=== PATIENT | female | born 1975 | race Caucasian/White ===

== ENCOUNTER → 2016-09-27 | Outpatient (CLI) | payer BC ==
[~2016-09-27] MED LIST: ACHD5005 PO; HCTZ12.5T PO; LEVO750T9 PO; NABU500T PO; NAPR-243 PO; ONDA4TAB8 PO; PRD20T PO; SULF1TAB35 PO; TRAM-42 PO
--- OUTSIDE RECORDS SUMMARY | 2016-09-27 14:30 | XMS REPORT | Continuity of Care Document ---
Author Author [facility] Organization [facility] Address Unknown Phone Unavailable Care Team Providers Care Qualification Engineer Name Role Phone Joe Flaherty PCP [phone] Source Comments Some departments are not documenting in the electronic medical record. If you do not see the information that you expected, contact Release of Information in the Health Information Management department at [phone] for further assistance in locating additional records.[facility] Active Allergies and Adverse Reactions No Known Allergies Current Medications Prescription Sig. Disp. Refills Start End Date Status Date nabumetone (RELAFEN) 500 Take 500 mg by mouth Active mg tablet twice daily. vitamins, B complex tab Take 1 Tab by mouth Active daily. omeprazole DR(+) Take 2 Caps by mouth 90 Cap 3 03/06/20 Active (PRILOSEC) 20 mg capsule daily before breakfast. [address] (CYMBALTA) Take 1 Cap by mouth 30 Cap 0 03/06/20 Active 20 mg capsule daily. 16 Active Problems Problem Noted Date Palpitations 03/06/2016 Arthralgia of multiple sites 03/06/2016 Venous stasis of both lower extremities 03/06/2016 Health care maintenance 03/06/2016 Social History Tobacco Use Types Packs/Day Years Used Date Former Smoker Quit: 03/06/2010 Smokeless Tobacco: Never Used Alcohol Use Drinks/Week oz/Week Comments No 0 Standard 0.0 drinks or equivalent Last Filed Vital Signs Vital Sign Reading Time Taken Blood Pressure 125/86 03/06/2016 9:43 AM CDT Pulse 74 03/06/2016 9:43 AM CDT Temperature 36.6 C (97.9 F) 03/06/2016 9:43 AM CDT Respiratory Rate 16 03/06/2016 9:43 AM CDT Height 1.702 m (5' 7") 03/06/2016 9:43 AM CDT Weight 96.888 kg (213 lb 9.6 oz) 03/06/2016 9:43 AM CDT Body Mass Index 33.45 03/06/2016 9:43 AM CDT Oxygen Saturation - - Plan of Care Health Maintenance Due Date Last Done Comments Physical (Comprehensive) 1982 Exam Pertussis Vaccine 1986 Tetanus Vaccine 1992 Cervical Cancer Screening 1996 Influenza Vaccine 04/19/2016 Results from Last 3 Months Not on file
--- NOTE | 2016-09-28 18:38 | Diagnostic Imaging Report ---
Bilateral screening mammogram. The current study was also evaluated with a Computer Aided Detection (CAD) system. INDICATION: Screening. No current complaints stated on the questionnaire. COMPARISON: 07/28/15. FINDINGS: The breasts are composed of scattered fibroglandular densities. There is no mass, architectural distortion or suspicious cluster of calcification. Allowing for technique and positional differences, no suspicious change is seen. IMPRESSION: No significant change. ACR BI-RADS Category 2: Benign findings. Result letter will be mailed to the patient. Note: At least 10% of breast cancer is not imaged by mammography. Dictated by: Dictated on workstation # [id number]
== END ==
LOC: RAD 14:27
PROVIDERS: ATTEND Internal Medicine
DX: Z12.31 Encounter for screening mammogram for malignant neoplasm of breast (principal)
CPT/HCPCS: 77067

== ENCOUNTER → 2016-12-28 | Outpatient (CLI) | payer BC | LOC: PREOP 05:36 | PROVIDERS: ATTEND Surgery | DX: Z01.818 Encounter for other preprocedural examination (principal); R19.5 Other fecal abnormalities ==

== ENCOUNTER 2017-01-15 11:00 | Outpatient (CLI) | payer BC ==
[~2017-01-15] VITALS: Ht 167.6 cm; Wt 90.7 kg
== END 2017-01-15 11:50 ==
LOC: PREOP 11:00
PROVIDERS: ATTEND Surgery
DX: Z01.818 Encounter for other preprocedural examination (principal); R19.4 Change in bowel habit

== ENCOUNTER 2017-01-16 10:53 | Day surgery (SDC) | payer BC ==
[~2017-01-16] VITALS: Ht 167.6 cm; Wt 90.7 kg
[2017-01-16] MEDS ORDERED: LACTATED RINGERS 1,000 ML IV STA (11:00)
[2017-01-16] MEDS ORDERED: NALOXONE 0.4 MG/ML 1 ML (NARCAN) VIAL IVP PRN (11:00)
[2017-01-16] MEDS ORDERED: FLUMAZENIL (ROMAZICON) 0.1 MG/ML 5 ML VIAL INJ PRN (11:00)
[2017-01-16 12:03] VITALS: BP 121/83
[2017-01-16] MEDS ORDERED: PROPOFOL INJECTION 50 ML IV ONE (12:32)
[2017-01-16] MEDS ORDERED: LACTATED RINGERS 1,000 ML IV SCH (12:45)
--- NOTE | 2017-01-16 13:14 | Progress Note-Post Operative ---
Post-Operative Progess Note Surgeon (s)/Toll Test Worker (s) Surgeon TIERRA BARBOZA DO Toll Test Worker: none Pre-Operative Diagnosis Change in bowel habits, Family Hx of colon CA, abd pain Post-Operative Diagnosis same + internal hemorrhoids Procedure & Operative Findings Date of Procedure 01/16/17 Procedure Performed/Findings Colonoscopy Anesthesia Type IV Sedation Estimated Blood Loss Estimated blood loss (mL): none Specimens/Packing Specimens Removed none TIERRA BARBOZA DO January 16, 2017 13:14
--- NOTE | 2017-01-16 13:16 | Endoscopy Discharge Instruct ---
Endo Procedure/Findings Findings 1.: Internal Hemorrhoids Discharge Instructions - Activity: You might feel a little sleepy until tomorrow. This is due to the medicine you received to relax you. Until tomorrow, you should: NOT drive a car, operate machinery or power tools. NOT drink any alcoholic beverages. NOT make any important decisions or sign importortant papers. Do not return to work until tomorrow, unless otherwise instructed. Resume previous activities tomorrow. Diet: Start by taking liquids. If you tolerate liquids, advance to solid food. Make appt for one week, Notify Physician - If you experience excessive bleeding, unusual abdominal pain, fever, or chest pain, contact your doctor immediately. [phone] Follow-Up: - I have received and understand the above instructions and will call my doctor if I have any further questions. Patient Signature Date Nurse Signature Other (Relationship) TIERRA BARBOZA DO January 16, 2017 13:16
[2017-01-16 13:25] VITALS: BP_SYST 117; BP_SYST 121; BP_DIAS 83; BP_DIAS 86
[2017-01-16 13:50] VITALS: BP 122/92
[2017-01-16 13:55] VITALS: BP 122/92
--- NOTE | 2017-01-16 23:16 | OPERATIVE REPORT ---
DATE OF SERVICE: 01/16/2017 PREOPERATIVE DIAGNOSES: 1. Change in bowel habits. 2. Abdominal pain. 3. Family history of colon cancer. POSTOPERATIVE DIAGNOSES: 1. Change in bowel habits. 2. Abdominal pain. 3. Family history of colon cancer. 4. Internal hemorrhage. PROCEDURE: Colonoscopy. SURGEON: Alberto Woodson DO. DIRECT CARE PROFESSIONAL: None. ANESTHESIA: IV sedation by the CABLE TELEVISION INSTALLER. SPECIMEN: None. BLOOD LOSS: None. FLUIDS: Per anesthesia. POSTOPERATIVE CONDITION: Stable. INDICATION FOR PROCEDURE: The patient is a 41-year-old female who has been having some change in bowel habits, a little bit of abdominal pain, and she has a pretty strong family history of colon cancer. She needed colonoscopy for screening. FINDINGS: The patient had just some internal hemorrhage. No other obvious pathology. PROCEDURE NOTE: After informed consent was obtained the patient was brought to the endoscopy suite, placed in left lateral decubitus position. She is administered IV sedation. Her vitals were monitored the entire time by the CABLE TELEVISION INSTALLER. The scope was inserted and was pushed all the way to about 150 cm. I was able to evaluate the cecum. Took a picture of the appendiceal orifice. Then able to get into sternal alignment and took a picture and then slowly withdrew the scope. Insufflated to look circumferentially at the curtis, looking at the cecum, then at the ascending colon to the hepatic flexure, then down the transverse colon to the splenic flexure, into the descending colon and down into the sigmoid, into the rectum, retroflexed in the rectal vault. I saw some internal hemorrhoids but no other obvious pathology. The scope was removed. The patient tolerated the procedure well. She was transferred to recovery room in stable condition. Job ID: [id number] DocumentID: [id number] Dictated Date: 01/16/2017 13:18:27 Gynaecological Oncologist Date: 01/16/2017 22:30:51 Dictated By: ALBERTO WOODSON DO
== END 2017-01-16 13:55 | disposition home or self-care (01) ==
LOC: ENDO 10:53
PROVIDERS: ATTEND Surgery
DX: K64.8 Other hemorrhoids (principal); R19.5 Other fecal abnormalities; Z80.0 Family history of malignant neoplasm of digestive organs; F17.210 Nicotine dependence, cigarettes, uncomplicated
CPT/HCPCS: 84703

== ENCOUNTER 2017-12-06 16:55 | Emergency (ER) | payer BC ==
[~2017-12-06] VITALS: Ht 170.2 cm; Wt 79.4 kg
--- NOTE | 2017-12-06 17:26 | ED Lower Extremity ---
General Chief Complaint: Lower Extremity Stated Complaint: L LEG PAIN Source: patient Exam Limitations: no limitations History of Present Illness Date Seen by Provider: Dec 06, 2017 Time Seen by Provider: 17:22 Initial Comments The patient is a 42-year-old white female who presents with a complaint of a painful left lower leg and calf. She reports that about a month ago she was kicked by a horse in that area. She had a large ecchymosis and a central harder nodule which ultimately resolved. She was ambulatory throughout the whole. Yesterday she noted a tender firm area at exactly the area of the hard nodule and the leg has become red and warm below the knee. She takes no estrogens and no blood thinners. There was never an open wound. Pain/Injury Location: left leg Method of Injury: unknown Allergies and Home Medications Allergies Coded Allergies: NKANo Known Allergies (Verified Allergy, Unknown, 11/21/11) Home Medications No Active Prescriptions or Reported Meds Patient Home Medication List Home Medication List Reviewed: Yes Constitutional: see HPI EENTM: no symptoms reported Respiratory: no symptoms reported Cardiovascular: no symptoms reported Gastrointestinal: no symptoms reported Genitourinary: no symptoms reported Musculoskeletal: no symptoms reported Skin: see HPI Psychiatric/Neurological: No Symptoms Reported Past Ptyudvr-Jyoqyv-Yqblzg Hx Patient Social History Former Smoker, Quit: January 16, 2012 Recent Foreign Travel: No Contact w/Someone Who Travel: No Recent Hopitalizations: No Immunizations Up To Date Tetanus Booster (TDap): Less than 5yrs Date of Pneumonia Vaccine: Dec 14, 2013 Date of Influenza Vaccine: May 16, 2015 Seasonal Allergies Seasonal Allergies: Yes Past Medical History Tonsillectomy Reproductive Disorders: No Female Reproductive Disorders: Denies Sexually Transmitted Disease: No Kidney Infection, Bladder Infection, UTI-Chronic Chronic Back Pain Family Medical History Heart Disease Physical Exam Vital Signs Capillary Refill : General Appearance: WD/WN, no apparent distress HEENT: normal ENT inspection Neck: non-tender, full range of motion, supple, normal inspection Cardiovascular: normal peripheral pulses, regular rate, rhythm, no edema, no gallop, no JVD, no murmur Respiratory: chest non-tender, lungs clear, normal breath sounds, no respiratory distress, no accessory muscle use Comments There is medial erythema to the knee on the left calf. There is slight warmness to the touch as well as a pinkish red color. There is a mid calf and central area that is redder and firmer. She states this is the area of impact from the horse. This had previously resolved. 2 small superficial varices are noted in the area without palpable clots. Progress/Results/Core Measures My Orders Orders - RUMA COLE MD Venous Lower Ext Lt (12/06/17 17:31) Departure Communication (Admissions) 1820 the ultrasound returned negative for clot. Impression Primary Impression: cellulitis Disposition: HOME, SELF-CARE Condition: Stable/Unchanged Departure-Patient Inst. Decision time for Depature: 18:29 Referrals: YANIQUE LAUREANO DO (PCP/Family) Primary Care Physician Add. Discharge Instructions: All discharge instructions reviewed with patient and/or family. Voiced understanding. Take a regular aspirin twice daily for a week. Beginning about 6 p.m. tomorrow start the antibiotic by mouth and finish it. If change in condition return to emergency room Scripts Cefdinir (Cefdinir) 300 Mg Capsule 300 MG PO TWICE A DAY, #14 CAP Prov: RUMA COLE MD 12/06/17 RUMA COLE MD Dec 06, 2017 17:26
[2017-12-06] MEDS ORDERED: CEFD300C3 PO (18:33)
--- NOTE | 2017-12-06 18:37 | Diagnostic Imaging Report ---
INDICATION: Left leg pain and redness. COMPARISON: None. TECHNIQUE: Duplex, solano-scale and color-flow imaging of the left lower extremity venous system was performed. FINDINGS: The common femoral vein, superficial femoral vein, profunda femoris, and popliteal veins are normal. These vessels show normal compressibility, color flow, and Doppler augmentation. The deep calf veins, although not very well seen, demonstrate no distinct intraluminal thrombus. IMPRESSION: Negative venous Doppler of the left lower extremity. Dictated by: Dictated on workstation # [id number]
[2017-12-06] MEDS ORDERED: LIDOCAINE 1% INJ 50 ML (XYLOCAINE) VIAL IJ ONE (18:45)
[2017-12-06] MEDS ORDERED: cefTRIAXone 1 GM (ROCEPHIN) VIAL IM ONE (18:45)
[2017-12-06 18:54] VITALS: BP 136/99
== END 2017-12-06 18:54 | disposition home or self-care (01) ==
LOC: EDUNIT# 16:55 → ER 16:56
DX: L03.116 Cellulitis of left lower limb (principal); Z88.1 Allergy status to other antibiotic agents; Z87.891 Personal history of nicotine dependence; Z90.89 Acquired absence of other organs; Z87.440 Personal history of urinary (tract) infections; Z82.49 Family history of ischemic heart disease and other diseases of the circulatory system
CPT/HCPCS: 96372

== ENCOUNTER 2018-06-29 13:30 | Emergency (ER) | payer BC ==
[~2018-06-29] VITALS: Ht 170.2 cm; Wt 81.6 kg
[~2018-06-29 13:30] MED LIST changes: +CEFD300C3 PO
--- OUTSIDE RECORDS SUMMARY | 2018-06-29 13:49 | XMS REPORT | Clinical Summary ---
Author Author [facility] Organization [facility] Address Unknown Phone Unavailable Care Team Providers Care Personal Insurance Advisor Name Role Phone PCP Unavailable Source Comments Some departments are not documenting in the electronic medical record. If you do not see the information that you expected, contact Release of Information in the Health Information Management department at [phone] for further assistance in locating additional records.[facility] Allergies No Known Allergies Current Medications Prescription Sig. [...] No 0 Standard 0.0 drinks or equivalent Sex Assigned at Date Recorded Not on file Last Filed Vital Signs Vital Sign Reading Time Taken Blood Pressure 125/86 03/06/2016 9:43 AM CDT Pulse 74 03/06/2016 9:43 AM CDT Temperature 36.6 C (97.9 F) 03/06/2016 9:43 AM CDT Respiratory Rate 16 03/06/2016 9:43 AM CDT Oxygen Saturation - - Inhaled Oxygen - - Concentration Weight 96.9 kg (213 lb 9.6 oz) 03/06/2016 9:43 AM CDT Height 170.2 cm (5' 7") 03/06/2016 9:43 AM CDT Body Mass Index 33.45 03/06/2016 9:43 AM CDT Plan of Treatment Health Maintenance Due Date Last Done Comments PHYSICAL (COMPREHENSIVE) 1982 EXAM PERTUSSIS VACCINE 1986 HIV SCREENING 1990 TETANUS VACCINE 1992 CERVICAL CANCER SCREENING 2005 BREAST CANCER SCREENING 2015 INFLUENZA VACCINE 03/19/2018 Results Not on filefrom Last 3 Months
--- OUTSIDE RECORDS SUMMARY | 2018-06-29 13:49 | XMS REPORT ---
Author Author EVAN GÓMEZ [facility] Address [address] [place] [address] Care Team Providers Care Manufacturing Engineering Technician Name Role Phone GÓMEZEVAN Unavailable PROBLEMS Type Condition ICD9-CM Code PYP05-QC Code Onset Dates Condition Status SNOMED Code Problem Hypopotassemia 276.8 Active 53849405 Problem Painful respiration 786.52 Active 80248694 Problem Family history of other cardiovascular diseases V17.49 Active 996401287 Problem Need for prophylactic vaccination and inoculation, Influenza V04.81 Active 944460226 Problem Screening examination for pulmonary tuberculosis V74.1 Active 807740916 ALLERGIES No Information ENCOUNTERS Encounter Location Date Diagnosis [facility] [id number] [place] [address]- [address] May, Encounter for immunization Z23 [facility] [id number] [place] [address]- [address] May, Encounter for immunization Z23 [facility] [id number] [place] [address]- [address] Nov, [facility] [id number] [place] [address] Nov, [facility] [id number] [place] [address]- [address] Aug, [facility] [id number] [place] [phone]- [address] Aug, [facility] [id number] [place] [address]- [address] Aug, [facility] [id number] [place] [address]- [address] May, [facility] [id number] [place] [address]- [address] May, [facility] [id number] [address] May, [facility] [address] [facility] [id number] [address] May, [facility] [id number] [address] Apr, [facility] [address] [facility] [id number] [address] Apr, [facility] [address] [facility] [id number] [address] Mar, [facility] [address] [address] December, [facility] [address] [address] Nov, [facility] [address] [address] Nov, [facility] [address] [address] Nov, [facility] [address] [address] May, [facility] [id number] [address] May, IMMUNIZATIONS Vaccine Route Administration Date Status FLULAVAL QUAD 0.5ML (6 MO & UP) 2018 IM Intramuscular Jun 10, 2018 Administered SOCIAL HISTORY Never Assessed REASON FOR VISIT Flu shot PLAN OF CARE VITAL SIGNS MEDICATIONS Unknown Medications RESULTS No Results PROCEDURES Procedure Date Ordered Result Body Site FLULAVAL QUAD 0.5ML (6 MO AND UP) 2018 Jun 10, 2018 SINGLE IMMUNIZATION ADMIN Jun 10, 2018 INSTRUCTIONS MEDICATIONS ADMINISTERED No Known Medications
--- OUTSIDE RECORDS SUMMARY | 2018-06-29 13:50 | XMS REPORT | Continuity of Care Document ---
Author Author [facility] Address Unknown Phone Unavailable Allergies Active Description Code Type Severity Reaction Onset Reported/Identified Relationship to Patient Clinical Status Yes NKANo Known Allergies NKA Miscellaneous Allergy Unknown N/A 12/19/2005 Medications There is no data. Problems Date Dx Coded Attending Type Code Diagnosis Diagnosed By 09/20/2008 599.0 URINARY TRACT INFECTION 09/20/2008 BALDOMERO STERLING APRN 599.0 URINARY TRACT INFECTION 09/20/2008 EVAN GÓMEZ DO 599.0 URINARY TRACT INFECTION 09/20/2008 EVAN GÓMEZ DO 599.0 URINARY TRACT INFECTION 09/20/2008 BALDOMERO STERLING APRN 599.0 URINARY TRACT INFECTION 09/20/2008 BALDOMERO STERLING APRN A 599.0 URINARY TRACT INFECTION 09/13/2011 Ot 599.0 URIN TRACT INFECTION NOS 09/13/2011 Ot 724.2 LUMBAGO 09/13/2011 Ot 729.5 PAIN IN LIMB 11/17/2011 Ot 728.71 PLANTAR FIBROMATOSIS 11/17/2011 Ot 729.5 PAIN IN LIMB 06/05/2012 V04.81 FLU DX (3 YRS AND ABOVE, IM) 06/05/2012 BALDOMERO STERLING APRN V04.81 FLU DX (3 YRS AND ABOVE, IM) 06/05/2012 EVAN GÓMEZ DO V04.81 FLU DX (3 YRS AND ABOVE, IM) 06/05/2012 EVAN GÓMEZ DO V04.81 FLU DX (3 YRS AND ABOVE, IM) 06/05/2012 BALDOMERO STERLING APRN V04.81 FLU DX (3 YRS AND ABOVE, IM) 06/05/2012 BALDOMERO STERLING APRN A V04.81 FLU DX (3 YRS AND ABOVE, IM) 10/29/2012 Ot 719.41 JOINT PAIN- SHLDER 10/29/2012 Ot 786.52 PAINFUL RESPIRATION 11/19/2012 786.52 CHEST WALL PAIN 11/19/2012 ZOËE LIBERTAD, BALDOMERO A 786.52 CHEST WALL PAIN 11/19/2012 GÓMEZ DO, EVAN K 786.52 CHEST WALL PAIN 11/19/2012 GÓMEZ DO, EVAN K 786.52 CHEST WALL PAIN 11/19/2012 HALLIE MAURER, BALDOMERO A 786.52 CHEST WALL PAIN 11/19/2012 HALLIE BYRDN, BALDOMERO A 786.52 CHEST WALL PAIN 11/24/2012 ZOËE SURVEYOR ROD HELPER, BALDOMERO A 276.8 HYPOKALEMIA 11/24/2012 RAJTRINYE SURVEYOR ROD HELPER, BALDOMERO A V17.49 FAM HX CAD (DISEASE) 11/24/2012 GÓMEZ DO, EVAN K 276.8 HYPOKALEMIA 11/24/2012 GÓMEZ DO, EVAN K V17.49 FAM HX CAD (DISEASE) 11/24/2012 ÓGMEZ DO, EVAN K 276.8 HYPOKALEMIA 11/24/2012 GÓMEZ DO, EVAN K V17.49 FAM HX CAD (DISEASE) 11/24/2012 HALLIE BYRDN, BALDOMERO A 276.8 HYPOKALEMIA 11/24/2012 RAJTRINYE SURVEYOR ROD HELPER, BALDOMERO A V17.49 FAM HX CAD (DISEASE) 11/24/2012 HALLIE BYRDN, BALDOMERO A 276.8 HYPOKALEMIA 11/24/2012 HALLIE MAURER, BALDOMERO A V17.49 FAM HX CAD (DISEASE) 03/19/2013 WANDER BEATTY [facility], ALI FACP CCDS Ot 276.9 ELECTROLYT/FLUID DIS NEC 03/19/2013 WANDER BEATTY FAC, ALI FACP CCDS Ot 785.1 PALPITATIONS 03/19/2013 WANDER BEATTY [facility], ALI FACP CCDS Ot 786.50 CHEST PAIN NOS 05/25/2013 GÓMEZ DO, EVAN K V74.1 TB SCREENING 05/25/2013 HALLIE MAURER, BALDOMERO A V74.1 TB SCREENING 05/25/2013 HALLIE MAURER, BALDOMERO A V74.1 TB SCREENING 09/01/2014 Ot 611.79 09/01/2014 WANDER MCBRIDE, ALI FACP CCDS Ot 276.9 09/01/2014 WANDER BEATTY FACC, ALI FACP CCDS Ot 785.1 09/01/2014 WANDER BEATTY FACC, ALI FACP CCDS Ot 786.50 09/01/2014 WANDER BEATTY FACC, ALI FACP CCDS Ot 276.9 09/01/2014 Ot 276.9 09/01/2014 Ot 785.1 09/01/2014 Ot 786.50 09/17/2014 YOCASTA BEATTY, BARBARA Singh Ot 599.70 09/17/2014 BARBARA RUST MD Ot V13.02 02/02/2015 MILES ORTIZ DO Ot 729.2 06/15/2015 Ot G35 06/20/2015 LAUREANO DO, YANIQUE Ot G35 06/28/2015 Ot 611.79 06/28/2015 WANDER BEATTY FACC, ALI FACP CCDS Ot 276.9 06/28/2015 WANDER BEATTY FACC, ALI FACP CCDS Ot 785.1 06/28/2015 WANDER BEATTY FACC, ALI FACP CCDS Ot 786.50 06/28/2015 WANDER BEATTY FACC, ALI FACP CCDS Ot 276.9 06/28/2015 Ot 276.9 06/28/2015 Ot 785.1 06/28/2015 Ot 786.50 06/28/2015 BARBARA RUST MD Ot 599.70 06/28/2015 BARBARA RUST MD Ot V13.02 06/28/2015 MILES ROTIZ DO Ot 729.2 06/28/2015 Ot G35 06/28/2015 LAUREANO DO, YANIQUE Ot G35 06/29/2015 LAUREANO DO, YANIQUE Ot D47.2 06/30/2015 LAUREANO DO, YANIQUE Ot G35 06/30/2015 LAUREANO DO, YANIQUE Ot G35 07/05/2015 LAUREANO DO, YANIQUE Ot G35 08/04/2015 LAUREANO DO, YANIQUE Ot D47.2 08/10/2015 LAUREANO DO, YANIQUE Ot Z12.31 08/23/2015 LAUREANO DO, YANIQUE Ot Z12.31 09/26/2015 LAUREANO DO, YANIQUE Ot D47.2 MONOCLONAL GAMMOPATHY 12/07/2015 CHAGO BEATTY, BENNIE Salamanca Ot D47.2 MONOCLONAL GAMMOPATHY 02/18/2016 AUGUSTIN POPE DO Ot N12 TUBULO-INTERSTITIAL NEPHRITIS, NOT SPCF 02/24/2016 AUGUSTIN POPE DO Ot N12 TUBULO-INTERSTITIAL NEPHRITIS, NOT SPCF 05/09/2016 BRIA BEATTY, WALDEMAR Cisse Ot M25.861 OTHER SPECIFIED JOINT DISORDERS, RIGHT K 05/16/2016 BRIA BEATTY, WALDEMAR Cisse Ot M25.861 OTHER SPECIFIED JOINT DISORDERS, RIGHT K 09/25/2016 Ot 611.79 SYMPTOMS IN BREAST NEC 09/25/2016 WANDER BEATTY FAC, ALI FACP CCDS Ot 276.9 ELECTROLYT/FLUID DIS NEC 09/25/2016 WANDER BEATTY FAC, ALI FACP CCDS Ot 785.1 PALPITATIONS 09/25/2016 WANDER BEATTY FAC, ALI FACP CCDS Ot 786.50 CHEST PAIN NOS 09/25/2016 WANDER BEATTY FAC, ALI FACP CCDS Ot 276.9 ELECTROLYT/FLUID DIS NEC 09/25/2016 Ot 276.9 ELECTROLYT/ FLUID DIS NEC 09/25/2016 Ot 785.1 PALPITATIONS 09/25/2016 Ot 786.50 CHEST PAIN NOS 09/25/2016 YOCASTA BEATTY, BARBARA Singh Ot 599.70 HEMATURIA, UNSPECIFIED 09/25/2016 BARBARA RUST MD Ot V13.02 PERSONAL HISTORY, URINARY (TRACT) INFECT 09/25/2016 MILES ORTIZ DO Ot 729.2 NEURALGIA/NEURITIS NOS 09/25/2016 Ot G35 MULTIPLE SCLEROSIS 09/25/2016 YANIQUE LAUREANO DO Ot G35 MULTIPLE SCLEROSIS 09/25/2016 YANIQUE LAUREANO DO Ot Z12.31 ENCNTR SCREEN MAMMOGRAM FOR MALIGNANT NE 09/25/2016 YANIQUE LAUREANO DO Ot Z12.31 ENCNTR SCREEN MAMMOGRAM FOR MALIGNANT NE 09/25/2016 Ot D47.2 MONOCLONAL GAMMOPATHY 09/25/2016 CHAGO BEATTY, BENNIE Salamanca Ot D47.2 MONOCLONAL GAMMOPATHY 09/25/2016 BRIA BEATTY, WALDEMAR Cisse Ot M25.861 OTHER SPECIFIED JOINT DISORDERS, RIGHT K 09/28/2016 YANIQUE LAUREANO DO Ot Z12.31 ENCNTR SCREEN MAMMOGRAM FOR MALIGNANT NE 10/11/2016 YANIQUE LAUREANO DO Ot Z12.31 ENCNTR SCREEN MAMMOGRAM FOR MALIGNANT NE 12/28/2016 TIERRA BARBOZA DO Ot R19.5 OTHER FECAL ABNORMALITIES 12/28/2016 TAMRA DO TIERRA B Ot Z01.818 ENCOUNTER FOR OTHER PREPROCEDURAL EXAMIN 01/10/2017 TAMRA ASEED ANDERSONIC B Ot R19.4 CHANGE IN BOWEL HABIT 01/10/2017 TAMRA ANDERSON TIERRA B Ot Z01.818 ENCOUNTER FOR OTHER PREPROCEDURAL EXAMIN 01/15/2017 TAMRA ANDERSON TIERRA B Ot R19.4 CHANGE IN BOWEL HABIT 01/15/2017 TAMRA ANDERSONSAEEDIC B Ot Z01.818 ENCOUNTER FOR OTHER PREPROCEDURAL EXAMIN 01/16/2017 TAMRA SAEED ANDERSONIC B Ot F17.210 NICOTINE DEPENDENCE, CIGARETTES, UNCOMPL 01/16/2017 TAMRA TIERRA ANDERSON B Ot K64.8 OTHER HEMORRHOIDS 01/16/2017 TAMRA SAEED ANDERSONIC B Ot R19.5 OTHER FECAL ABNORMALITIES 01/16/2017 TAMRA SAEED ANDERSONIC B Ot Z80.0 FAMILY HISTORY OF MALIGNANT NEOPLASM OF 01/17/2017 ROBERKERWIN TIERRA ANDERSON B Ot F17.210 NICOTINE DEPENDENCE, CIGARETTES, UNCOMPL 01/17/2017 ROBERKERWIN SAEED ANDERSONIC B Ot K64.8 OTHER HEMORRHOIDS 01/17/2017 TAMRA SAEED ANDERSONIC B Ot R19.5 OTHER FECAL ABNORMALITIES 01/17/2017 ROBERKERWIN TIERRA ANDERSON B Ot Z80.0 FAMILY HISTORY OF MALIGNANT NEOPLASM OF 12/06/2017 RUMA COLE MD Ot L03.116 CELLULITIS OF LEFT LOWER LIMB 12/06/2017 RUMA COLE MD Ot M79.662 PAIN IN LEFT LOWER LEG 12/06/2017 RUMA COLE MD Ot Z82.49 FAMILY HX OF ISCHEM HEART DIS AND OTH DI 12/06/2017 RUMA COLE MD Ot Z87.440 PERSONAL HISTORY OF URINARY (TRACT) INFE 12/06/2017 RUMA COLE MD Ot Z87.891 PERSONAL HISTORY OF NICOTINE DEPENDENCE 12/06/2017 RUMA COLE MD Ot Z88.1 ALLERGY STATUS TO OTHER ANTIBIOTIC AGENT 12/06/2017 RUMA COLE MD Ot Z90.89 ACQUIRED ABSENCE OF OTHER ORGANS Procedures Code Description [place] [address] ROUTINE VENIPUNCTURE 11/24/2012 00275 CMP 11/24/2012 03260 LIPID PANEL 11/24/20120433595 GFR CALC (RESULT ONLY) 11/24/2012 33493 TSH 11/24/2012 57611 UA W/ CULTURE IF INDICATED 05/05/2013 61293 CULTURE URINE 05/06/2013 39486 TB TEST INTRADERMAL 05/25/2013 58844 TB TEST INTRADERMAL 09/07/2014 Results Test Result Range Urine beta human chorionic gonadotropin (hCG) measurement - 01/16/17 11:00 Urine beta human chorionic gonadotropin (hCG) measurement NEGATIVE NEGATIVE Encounters ACCT No. Visit Date/Time Discharge Status Pt. Type Provider Facility Loc./Unit Complaint [id number] 09/07/2014 13:53:00 09/07/2014 23:59:59 CLS Outpatient BALDOMERO STERLING APRN [id number] 06/17/2013 14:03:00 06/17/2013 23:59:59 CLS Outpatient BALDOMERO STERLING APRN [id number] 05/25/2013 15:37:00 05/25/2013 23:59:59 CLS Outpatient EVAN GÓMEZ DO [id number] 05/05/2013 17:59:00 05/05/2013 23:59:59 CLS Outpatient EVAN GÓMEZ DO [id number] 11/24/2012 13:50:00 11/24/2012 23:59:59 CLS Outpatient BALDOMERO STERLING APRN [id number] 11/19/2012 13:40:00 11/19/2012 23:59:59 CLS Outpatient [id number] 12/06/2017 16:56:00 12/06/2017 18:54:00 DIS Emergency DOUGLAS BEATTY, RUMA Salamanca [facility] ER L LEG PAIN [id number] 01/30/2017 10:15:00 01/30/2017 23:59:59 CLS Preadmit TIERRA BARBOZA DO [facility] RAD LLQ PAIN [id number] 01/16/2017 10:53:00 01/16/2017 13:55:00 DIS Outpatient TIERRA BARBOZA DO [facility] ENDO CHANGE IN BOWEL MOVEMENTS [id number] 01/15/2017 11:00:00 01/15/2017 11:50:00 DIS Outpatient TIERRA BARBOZA DO [facility] PREOP CHANGE IN BOWEL HABITS [id number] 12/28/2016 05:36:00 12/28/2016 23:59:59 CLS Outpatient TIERRA BARBOZA DO [facility] PREOP CHANGE IN BOWEL MOVEMENTS [id number] 09/27/2016 14:27:00 09/27/2016 23:59:59 CLS Outpatient YANIQUE LAUREANO DO [facility] RAD ENCOUNTER FOR SCREENING MAMMO FOR MALIGNANT NEOPLA [id number] 05/04/2016 17:37:00 05/04/2016 23:59:59 CLS Outpatient WALDEMAR FRASER MD [facility] RAD TEAR OF LATERAL MENISCUS RT KNEE [id number] 02/18/2016 14:49:00 02/18/2016 19:31:00 DIS Emergency AUGUSTIN POPE DO [facility] ER FEVER/R SIDE ABD PAIN [id number] 11/23/2015 14:27:00 11/23/2015 23:59:59 CLS Outpatient BENNIE ANDERS MD [facility] LAB MONOCLONAL GAMMOPATHY [id number] 08/10/2015 08:40:00 08/10/2015 23:59:59 CLS Outpatient YANIQUE LAUREANO DO [facility] RAD ABNORMAL MAMMOGRAM [id number] 07/28/2015 14:35:00 07/28/2015 23:59:59 CLS Outpatient YANIQUE LAUREANO DO [facility] RAD SCREENING [id number] 06/30/2015 07:10:00 06/30/2015 23:59:59 CLS Outpatient YANIQUE LAUREANO DO [facility] LAB Monoclonal gammopathy [id number] 06/15/2015 14:21:00 06/15/2015 23:59:59 CLS Outpatient YANIQUE LAUREANO DO [facility] CATH MULTIPLE SCLEROSIS [id number] 12/20/2014 14:44:00 12/20/2014 23:59:59 CLS Outpatient MILES ORTIZ DO [facility] RAD RADICULOPATHY [id number] 09/01/2014 08:55:00 09/01/2014 23:59:59 CLS Outpatient BARBARA RUST MD [facility] RAD HEMATURIA,RECURRENT UTI [id number] 01/14/2013 06:52:00 03/19/2013 00:01:00 DIS Outpatient WANDER BEATTY FACC, IMANI FACP CCDS [facility] CARD CP, PALPITATIONS [id number] 02/26/2013 08:46:00 02/26/2013 23:59:59 CLS Outpatient WANDER BEATTY FACC, IMANI FACP CCDS [facility] LAB ELECTROLYTES ADNORMALITY [id number] 12/29/2012 08:35:00 12/29/2012 23:59:59 CLS Outpatient WANDER BEATTY FACC, IMANI FACP CCDS [facility] CARD CHEST PAIN, PALPITATIONS [id number] 09/27/2015 00:00:00 Document Registration [id number] 05/30/2015 14:53:00 Document Registration [id number] 09/01/2014 08:54:00 Document Registration [id number] 03/20/2013 09:00:00 Document Registration [id number] 10/29/2012 13:51:00 Document Registration [id number] 12/31/2011 14:05:00 Document Registration [id number] 11/17/2011 16:52:00 Document Registration [id number] 09/13/2011 05:15:00 Document Registration
--- NOTE | 2018-06-29 14:19 | Diagnostic Imaging Report ---
Indication: Fall with left knee pain. Time of exam: 2:08 PM 3 views left knee demonstrate normal alignment. Joint space is well maintained. Articular surfaces are smooth. No fracture, dislocation or effusion is seen. There does appear to be some prepatellar soft tissue swelling. Impression: Prepatellar soft tissue swelling. No acute bony abnormality is detected. Dictated by: Dictated on workstation # [id number]
--- NOTE | 2018-06-29 14:31 | ED Lower Extremity ---
General Chief Complaint: Trauma-Non Activation Stated Complaint: L KNEE PAIN,FALL Nursing Triage Note: PATIENT STATES THAT SHE FELL SUDDENLY WHILE WALKING OUT OF SPIRITISM TODAY. SHE WAS HOLDING HER GRANDDAUGHTER AND TOOK MOST OF THE IMPACT ON HER KNEES TO KEEP THE BABY FROM GETTING INJURED. SIGNIFICANT PAIN IN LEFT KNEE. PATIETN STATES SHE CAN WALK BUT IT IS VERY PAINFUL AND "IT DOESN'T LOOK RIGHT." Nursing Sepsis Screen: No Definite Risk History of Present Illness Date Seen by Provider: Jun 29, 2018 Time Seen by Provider: 14:05 Initial Comments 43-year-old female presents for bilateral knee pain, left worse than right. She was walking out of bahai holding her granddaughter when she fell, she sustained most of the impact on her left knee. She denies any other injuries at the time of the fall. She's had no previous knee problems. Moderate anterior knee swelling on the left. Onset: just prior to arrival Pain/Injury Location: bilateral knee Method of Injury: fell Modifying Factors: Improves With Rest Allergies and Home Medications Allergies Coded Allergies: NKANo Known Allergies (Verified Allergy, Unknown, 11/21/11) Home Medications Cefdinir 300 Mg Capsule, 300 MG PO TWICE A DAY Prescribed by: RUMA COLE on 12/06/17 7354 Patient Home Medication List Home Medication List Reviewed: Yes Review of Systems Constitutional: no symptoms reported, see HPI Musculoskeletal: see HPI, joint pain (bilateral knee pain left greater than right.), joint swelling (left knee) Skin: see HPI, other (abrasion left knee) Past Oixmmgq-Bnkepf-Qrteei Hx Patient Social History Type Used: Cigarettes Former Smoker, Quit: January 16, 2012 Recent Foreign Travel: No Contact w/Someone Who Travel: No Recent Infectious Disease Expo: No Recent Hopitalizations: No Immunizations Up To Date Tetanus Booster (TDap): Less than 5yrs Date of Pneumonia Vaccine: Dec 14, 2013 Date of Influenza Vaccine: May 16, 2015 Seasonal Allergies Seasonal Allergies: Yes Past Medical History Surgeries: Yes (foot sx, knee scope, hemorrage that required sx, ) Tonsillectomy Respiratory: No Cardiac: No Neurological: No Reproductive Disorders: No Female Reproductive Disorders: Denies Sexually Transmitted Disease: No Kidney Infection, Bladder Infection, UTI-Chronic Gastrointestinal: No Musculoskeletal: Yes Chronic Back Pain Endocrine: No Cancer: No Psychosocial: No Integumentary: No Blood Disorders: No Family Medical History Heart Disease Physical Exam Vital Signs Vital Signs - First Documented 06/29/18 13:40 Temp 97.0 Pulse 83 Resp 20 B/P (MAP) 133/92 (106) Pulse Ox 96 O2 Delivery Room Air Capillary Refill : Less Than 3 Seconds Height, Weight, BMI Height: 5'7.00" Weight: 180lbs. 0oz. 81.683485dq; 32.3 BMI Method:Stated General Appearance: WD/WN, no apparent distress Neck: non-tender, full range of motion, supple, normal inspection Cardiovascular: normal peripheral pulses, regular rate, rhythm Respiratory: chest non-tender, lungs clear, normal breath sounds Gastrointestinal: normal bowel sounds, non tender, soft Knees: right knee non-tender, right knee normal inspection; bilateral knee normal range of motion; left knee soft tissue tenderness, left knee swelling ( nephew prepatellar swelling noted), left knee other (no medial or lateral laxity , negative Sandi and anterior/posterior drawer.) Neurologic/Psychiatric: no motor/sensory deficits, alert, normal mood/affect, oriented x 3 Skin: normal color, warm/dry, other (superficial abrasion left anterior knee) Progress/Results/Core Measures Results/Orders My Orders Orders - ANA LAURA FIGUEROA Knee, Left, 3 Views (06/29/18 13:56) Urine Bedside (06/29/18 14:11) Vital Signs/I&O 06/29/18 06/29/18 13:40 15:05 Temp 97.0 97.0 Pulse 83 83 Resp 20 20 B/P (MAP) 133/92 (106) 133/92 (106) Pulse Ox 96 96 O2 Delivery Room Air Blood Pressure Mean: 106 Progress Progress Note : Time: 14:05 Progress Note Patient seen and evaluated. X-rays of the left knee. Superficial abrasion to the left knee with sterile water and Hibiclens. Triple antibiotic ointment and Band-Aid applied. 1445 x-rays findings reviewed with patient, no fractures or dislocations appreciated. 6 inch Aristeo wrap applied to left knee. Diagnostic Imaging Diagonstic Imaging: Xray Plain Films/CT/US/NM/MRI: knee Comments NAME: NIMA LAUREANO [facility] REC#: [id number] PT STATUS: REG ER : 1975 PHYSICIAN: ANA LAURA FIGUEROA ADMIT DATE: 06/29/18/ER Signed Date of Exam: 06/29/18 KNEE, LEFT, 3 VIEWS Indication: Fall with left knee pain. Time of exam: 2:08 PM 3 views left knee demonstrate normal alignment. Joint space is well maintained. Articular surfaces are smooth. No fracture, dislocation or effusion is seen. There does appear to be some prepatellar soft tissue swelling. Impression: Prepatellar soft tissue swelling. No acute bony abnormality is detected. Dictated by: Dictated on workstation # [id number] Dict: 06/29/18 1415 Trans: 06/29/18 142 Interpreted by: DEYSI AGUILAR MD Electronically signed by: DEYSI AGUILAR MD 06/29/18 142 Departure Impression Primary Impression: Fall Qualified Codes: W19.XXXA - Unspecified fall, initial encounter Additional Impression: Contusion of left knee Qualified Codes: S80.02XA - Contusion of left knee, initial encounter Disposition: 01 HOME, SELF-CARE Condition: Improved Departure-Patient Inst. Decision time for Depature: 14:50 Referrals: YANIQUE LAUREANO DO (PCP/Family) Primary Care Physician Patient Instructions: Knee Pain (DC) Add. Discharge Instructions: Ice to knee 20 minutes every 2 hours while awake. You may alternate between Tylenol 650 mg and ibuprofen 600 mg every 4 hours for pain and swelling. Activity as tolerated. Follow-up with your primary care provider in 2-3 days, or sooner if symptoms are not improving or worsen. Return to emergency department for new or worsening injuries. All discharge instructions reviewed with patient and/or family. Voiced understanding. ANA LAURA FIGUEROA Jun 29, 2018 14:30
[2018-06-29 15:05] VITALS: BP 133/92
== END 2018-06-29 15:10 | disposition home or self-care (01) ==
LOC: EDUNIT# 13:30 → ER 13:31
DX: S80.02XA Contusion of left knee, initial encounter (principal); Z87.891 Personal history of nicotine dependence; Z90.89 Acquired absence of other organs; Z87.440 Personal history of urinary (tract) infections; W19.XXXA Unspecified fall, initial encounter; Y92.22 Religious institution as the place of occurrence of the external cause
CPT/HCPCS: 73562; 84703

== ENCOUNTER 2018-11-11 10:24 | Emergency (ER) | payer BC ==
[~2018-11-11] VITALS: Ht 170.2 cm; Wt 83.9 kg
--- OUTSIDE RECORDS SUMMARY | 2018-11-11 10:29 | XMS REPORT | Clinical Summary ---
Author Author [facility] Organization [facility] Address Unknown Phone Unavailable Care Team Providers Care Director Of Conservation Name Role Phone PCP Unavailable Source Comments Some departments are not documenting in the electronic medical record. If you do not see the information that you expected, contact Release of Information in the Health Information Management department at [phone] for further assistance in locating additional records.[facility] Allergies No Known Allergies Medications End Date Status Medication Sig Dispensed Refills Start Date Active nabumetone (RELAFEN) 500 Take 500 mg 0 mg tablet by mouth twice daily. Active vitamins, B complex tab Take 1 Tab by 0 mouth daily. Active omeprazole DR(+) Take 2 Caps 90 Cap 3 (PRILOSEC) 20 mg capsule by mouth 6 daily before breakfast. Active DULoxetine DR (CYMBALTA) Take 1 Cap by 30 Cap 0 20 mg capsule mouth daily. 6 Active Problems Problem Noted Date Palpitations 03/06/2016 Arthralgia of multiple sites 03/06/2016 Venous stasis of both lower extremities 03/06/2016 Health care maintenance 03/06/2016 Social History Date Tobacco Use Types Packs/Day Years Used Quit: 03/06/2010 Former Smoker Smokeless Tobacco: Never Used Alcohol Use Drinks/Week oz/Week Comments No 0 Standard 0.0 drinks or equivalent Sex Assigned at Date Recorded Not on file Industry Job Start Date Occupation Not on file Not on file Not on file Travel End Travel History Travel Start No recent travel history available. Last Filed Vital Signs Time Taken Vital Sign Reading 03/06/2016 9:43 AM CDT Blood Pressure 125/86 03/06/2016 9:43 AM CDT Pulse 74 03/06/2016 9:43 AM CDT Temperature 36.6 C (97.9 F) 03/06/2016 9:43 AM CDT Respiratory Rate 16 - Oxygen Saturation - - Inhaled Oxygen - Concentration 03/06/2016 9:43 AM CDT Weight 96.9 kg (213 lb 9.6 oz) 03/06/2016 9:43 AM CDT Height 170.2 cm (5' 7") 03/06/2016 9:43 AM CDT Body Mass Index 33.45 Plan of Treatment Health Maintenance Due Date Last Done Comments PHYSICAL (COMPREHENSIVE) 1982 EXAM HIV SCREENING 1990 DTAP/TDAP VACCINES (1 - 1993 Tdap) CERVICAL CANCER SCREENING 2005 BREAST CANCER SCREENING 2015 INFLUENZA VACCINE 03/19/2018 Results Not on filefrom Last 3 Months Insurance Type Payer Benefit Subscriber ID Effective Phone Address Plan / Dates Group PPO BCBS [facility] xxxxxxxxxxxx 2015- [facility] CARE Present BLUE Advance Directives Patient has advance care planning documents on file. For more information, please contact: [facility] [address] [place] [address]
[2018-11-11] MEDS ORDERED: ASPIRIN 81 MG CHEW (CHILDREN'S ASA) ONE (10:30)
--- OUTSIDE RECORDS SUMMARY | 2018-11-11 10:30 | XMS REPORT | Continuity of Care Document ---
Author Author [facility] Address Unknown Phone Unavailable Allergies Active [...] A 786.52 CHEST WALL PAIN 11/24/2012 ZOËE DATA ANALYSIS ASSISTANT, BALDOMERO A 276.8 HYPOKALEMIA 11/24/2012 RAJTRINYE DATA ANALYSIS ASSISTANT, BALDOMERO A V17.49 FAM HX CAD (DISEASE) 11/24/2012 GÓMEZ DO, EVAN K 276.8 HYPOKALEMIA 11/24/2012 GÓMEZ DO, EVAN K V17.49 FAM HX CAD (DISEASE) 11/24/2012 GÓMEZ DO, EVAN K 276.8 HYPOKALEMIA 11/24/2012 GÓMEZ DO, EVAN K V17.49 FAM HX CAD (DISEASE) 11/24/2012 HALLIE BYRDN, BALDOMERO A 276.8 HYPOKALEMIA 11/24/2012 RAJTRINYE DATA ANALYSIS ASSISTANT, BALDOMERO A V17.49 FAM HX CAD (DISEASE) 11/24/2012 HALLIE BYRDN, BALDOMERO A 276.8 HYPOKALEMIA 11/24/2012 HALLIE MAURER, BALDOMERO A V17.49 FAM HX CAD (DISEASE) 03/19/2013 WANDER BEATTY [facility], ALI FACP CCDS Ot 276.9 ELECTROLYT/FLUID DIS NEC 03/19/2013 WANDER BEATTY FAC, ALI FACP CCDS Ot 785.1 PALPITATIONS 03/19/2013 WANDER BEATTY [facility], ALI FACP CCDS Ot 786.50 CHEST PAIN [...] BARBARA RUST MD Ot V13.02 06/28/2015 MILES ORTIZ DO Ot 729.2 06/28/2015 Ot G35 06/28/2015 [...] Ot R19.5 OTHER FECAL ABNORMALITIES 12/28/2016 TAMRA ANDERSON TIERRA B Ot Z01.818 ENCOUNTER FOR OTHER PREPROCEDURAL EXAMIN 01/10/2017 TAMRA ANDERSON TIERRA B Ot R19.4 CHANGE IN BOWEL HABIT 01/10/2017 TAMRA ANDERSON TIERRA B Ot Z01.818 ENCOUNTER FOR OTHER PREPROCEDURAL EXAMIN 01/15/2017 TAMRA ANDERSON TIERRA B Ot R19.4 CHANGE IN BOWEL HABIT 01/15/2017 TAMRA ANDERSON TIERRA B Ot Z01.818 ENCOUNTER FOR OTHER PREPROCEDURAL EXAMIN 01/16/2017 TAMRA ANDERSON TIERRA B Ot F17.210 NICOTINE DEPENDENCE, CIGARETTES, UNCOMPL 01/16/2017 TAMRA SAEED ANDERSONIC B Ot K64.8 OTHER HEMORRHOIDS 01/16/2017 TAMRA ANDERSON TIERRA B Ot R19.5 OTHER FECAL ABNORMALITIES 01/16/2017 TAMRA SAEED ANDERSONIC B Ot Z80.0 FAMILY HISTORY OF MALIGNANT NEOPLASM OF 01/17/2017 TAMRA SAEED ANDERSONIC B Ot F17.210 NICOTINE DEPENDENCE, CIGARETTES, UNCOMPL 01/17/2017 TAMRA SAEED ANDERSONIC B Ot K64.8 OTHER HEMORRHOIDS 01/17/2017 TAMRA DO TIERRA B Ot R19.5 OTHER FECAL ABNORMALITIES 01/17/2017 TAMRA DO TIERRA B Ot Z80.0 FAMILY HISTORY OF MALIGNANT [...] Ot Z90.89 ACQUIRED ABSENCE OF OTHER ORGANS 06/29/2018 ANA LAURA FIGUEROA Ot M25.571 PAIN IN RIGHT ANKLE AND JOINTS OF RIGHT 06/29/2018 ANA LAURA FIGUEROA Ot S80.02XA CONTUSION OF LEFT KNEE, INITIAL ENCOUNTE 06/29/2018 ANA LAURA FIGUEROAP Ot W19.XXXA UNSPECIFIED FALL, INITIAL ENCOUNTER 06/29/2018 ANA LAURA FIGUEROA Ot Y92.[address] 06/29/2018 ANA LAURA FIGUEROA Ot Z87.440 PERSONAL HISTORY OF URINARY (TRACT) INFE 06/29/2018 ANA LAURA FIGUEROAP Ot Z87.891 PERSONAL HISTORY OF NICOTINE DEPENDENCE 06/29/2018 ANA LAURA FIGUEROAP Ot Z90.89 ACQUIRED ABSENCE OF OTHER ORGANS 07/01/2018 ANA LAURA FIGUEROAP Ot M25.571 PAIN IN RIGHT ANKLE AND JOINTS OF RIGHT 07/01/2018 ANA LAURA FIGUEROAP Ot S80.02XA CONTUSION OF LEFT KNEE, INITIAL ENCOUNTE 07/01/2018 ANA LAURA FIGUEROAP Ot W19.XXXA UNSPECIFIED FALL, INITIAL ENCOUNTER 07/01/2018 ANA LAURA FIGUEROAP Ot Y92.[address] 07/01/2018 ANA LAURA FIGUEROAP Ot Z87.440 PERSONAL HISTORY OF URINARY (TRACT) INFE 07/01/2018 ANA LAURA FIGUEROAP Ot Z87.891 PERSONAL HISTORY OF NICOTINE DEPENDENCE 07/01/2018 ANA LAURA FIGUEROAP Ot Z90.89 ACQUIRED ABSENCE OF OTHER ORGANS Procedures Code [place] [address] ROUTINE VENIPUNCTURE 11/24/2012 44083 CMP 11/24/2012 40074 LIPID PANEL 11/24/2012 2341212 GFR CALC (RESULT ONLY) 11/24/2012 84688 TSH 11/24/2012 77699 UA W/ CULTURE IF INDICATED 05/05/2013 06957 CULTURE URINE 05/06/2013 20538 TB TEST INTRADERMAL 05/25/2013 83095 TB TEST INTRADERMAL 09/07/2014 Results Test Result Range Urine beta human chorionic gonadotropin (hCG) measurement - 01/16/17 11:00 Urine beta human chorionic gonadotropin (hCG) measurement NEGATIVE NEGATIVE Encounters ACCT No. Visit Date/Time Discharge Status Pt. Type Provider Facility Loc./Unit Complaint [id number] 09/07/2014 13:53:00 09/07/2014 23:59:59 CLS Outpatient BALDOMERO STERLING APRN [id number] 06/17/2013 14:03:00 06/17/2013 23:59:59 CLS Outpatient KALPANA STERLING APRNNADIA Singh [id number] 05/25/2013 15:37:00 05/25/2013 23:59:59 CLS Outpatient EVAN GÓMEZ DO [id number] 05/05/2013 17:59:00 05/05/2013 23:59:59 CLS Outpatient EVAN GÓMEZ DO [id number] 11/24/2012 13:50:00 11/24/2012 23:59:59 CLS Outpatient BALDOMERO STERLING APRN Samantha [id number] 11/19/2012 13:40:00 11/19/2012 23:59:59 CLS Outpatient [id number] 06/29/2018 13:31:00 06/29/2018 15:10:00 DIS Emergency ANA ALURA FIGUEROA [facility] ER L KNEE PAIN,FALL [id number] 12/06/2017 16:56:00 12/06/2017 18:54:00 DIS Emergency RUMA COLE MD [facility] ER L LEG PAIN [id number] 01/30/2017 10:15:00 01/30/2017 23:59:59 CLS Preadmit TIERRA BARBOZA DO [facility] RAD LLQ PAIN [id number] 01/16/2017 10:53:00 01/16/2017 13:55:00 DIS Outpatient TIERRA BARBOZA DO [facility] ENDO CHANGE IN BOWEL MOVEMENTS [id number] 01/15/2017 11:00:00 01/15/2017 11:50:00 DIS Outpatient TIERRA BARBOZA DO [facility] PREOP CHANGE IN BOWEL HABITS [id number] 12/28/2016 05:36:00 12/28/2016 23:59:59 CLS Outpatient TIERRA BARBOZA DO [facility] PREOP CHANGE IN BOWEL MOVEMENTS [id number] 09/27/2016 14:27:00 09/27/2016 23:59:59 CLS Outpatient YANIQUE LAUREANO DO [facility] RAD ENCOUNTER FOR SCREENING MAMMO FOR MALIGNANT NEOPLA [id number] 05/04/2016 17:37:00 05/04/2016 23:59:59 CLS Outpatient WALDEMAR FRASER MD [facility] RAD TEAR OF LATERAL MENISCUS RT KNEE [id number] 02/18/2016 14:49:00 02/18/2016 19:31:00 DIS Emergency AUGUSTIN POPE DO [facility] ER FEVER/R SIDE ABD PAIN [id number] 11/23/2015 14:27:00 11/23/2015 23:59:59 CLS Outpatient BENNIE ANDERS MD [facility] LAB MONOCLONAL GAMMOPATHY [id number] 08/10/2015 08:40:00 08/10/2015 23:59:59 CLS Outpatient YANIQUE LAUREANO DO [facility] RAD ABNORMAL MAMMOGRAM [id number] 07/28/2015 14:35:00 07/28/2015 23:59:59 CLS Outpatient YANIQUE LAUREANO DO [facility] RAD SCREENING [id number] 06/30/2015 07:10:00 06/30/2015 23:59:59 CLS Outpatient YANIQUE LAUREANO DO [facility] LAB Monoclonal gammopathy [id number] 06/15/2015 14:21:00 06/15/2015 23:59:59 CLS Outpatient YANIQUE LAUREANO DO [facility] CATH MULTIPLE SCLEROSIS [id number] 12/20/2014 14:44:00 12/20/2014 23:59:59 CLS Outpatient MILES ORTIZ DO [facility] RAD RADICULOPATHY [id number] 09/01/2014 08:55:00 09/01/2014 23:59:59 CLS Outpatient BARBARA RUST MD [facility] RAD HEMATURIA,RECURRENT UTI [id number] 01/14/2013 06:52:00 03/19/2013 00:01:00 DIS Outpatient IMANI VIRAMONTES MD, FACC, FACP CCDS [facility] CARD CP, PALPITATIONS [id number] 02/26/2013 08:46:00 02/26/2013 23:59:59 CLS Outpatient IMANI VIRAMONTES MD, FACC, FACP CCDS [facility] LAB ELECTROLYTES ADNORMALITY [id number] 12/29/2012 08:35:00 12/29/2012 23:59:59 CLS Outpatient WANDER BEATTY FACC, IMANI ORTIZ CCDS [facility] CARD CHEST PAIN, PALPITATIONS [id number] 09/27/2015 00:00:00 Document Registration [id number] 05/30/2015 14:53:00 Document Registration [id number] 09/01/2014 08:54:00 Document Registration [id number] 03/20/2013 09:00:00 Document Registration [id number] 10/29/2012 13:51:00 Document Registration [id number] 12/31/2011 14:05:00 Document Registration [id number] 11/17/2011 16:52:00 Document Registration [id number] 09/13/2011 05:15:00 Document Registration
[2018-11-11 10:40] LABS: BASOPHILS # (AUTO) 0.1 10^3/uL (0.0-0.1); BASOPHILS % (AUTO) 1 % (0-10); EOSINOPHILS # (AUTO) 0.5 10^3/uL (0.0-0.3); EOSINOPHILS % (AUTO) 5 % (0-10); HEMATOCRIT 43 % (35-52); HEMOGLOBIN 14.9 G/DL (11.5-16.0); LYMPHOCYTES # (AUTO) 2.2 X 10^3 (1.0-4.0); LYMPHOCYTES % (AUTO) 21 % (12-44); MEAN CORPUSCULAR HEMOGLOBIN 32 PG (25-34); MEAN CORPUSCULAR HGB CONC 35 G/DL (32-36); MEAN CORPUSCULAR VOLUME 93 FL (80-99); MEAN PLATELET VOLUME 9.7 FL (7.4-10.4); MONOCYTES # (AUTO) 0.6 X 10^3 (0.0-1.0); MONOCYTES % (AUTO) 5 % (0-12); NEUTROPHILS # (AUTO) 7.5 X 10^3 (1.8-7.8); NEUTROPHILS % (AUTO) 69 % (42-75); PLATELET COUNT 329 10^3/uL (130-400); RED CELL DISTRIBUTION WIDTH 12.7 % (10.0-14.5); WHITE BLOOD COUNT 10.9 10^3/uL (4.3-11.0)
--- NOTE | 2018-11-11 10:42 | ED Chest Pain ---
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 She said it took her breath away and brought her to tears and so they insisted she come to the ER. She says started about half an hour prior to arrival and since then has progressively improved to about a 5 out of 10. She has not taken anything for it. No itching or burning or rash. She has no history of coronary disease. She has no history of lung disease, shortness of breath, cough or trauma. She has a history of GERD or anxiety. She does not take any medications. She has no history of surgeries on her chest. She 's had foot surgery before. No history of shingles. She is not having any nausea fevers or chills. No sweats. She has no diabetes, high blood pressure, hypercholesterolemia or thyroid disorder. She has no primary family history for coronary artery disease. She does not smoke drink or use recreational drugs. Patient said she had some chest pain and palpitations before but they were dissimilar to this in [address] Jaramillo did a stress test workup outpatient but did not find anything significant. Allergies and Home Medications Allergies Coded Allergies: NKANo Known Allergies (Verified Allergy, Unknown, 11/21/11) Home Medications No Active Prescriptions or Reported Meds Patient Home Medication List Home Medication List Reviewed: Yes Review of Systems Review of Systems Constitutional: No chills, No fever EENTM: No Blurred Vision, No Double Vision Respiratory: Denies Cough, Denies Shortness of Air, Denies Wheezing Cardiovascular: See HPI, Chest Pain; Denies Edema Gastrointestinal: See HPI; Denies Abdomen Distended, Denies Abdominal Pain, Denies Constipated, Denies Diarrhea, Denies Nausea Genitourinary: Denies Burning, Denies Discharge Musculoskeletal: No back pain, No joint pain Skin: No pruritus, No rash Psychiatric/Neurological: Denies Headache, Denies Numbness, Denies Paresthesia Past Elbvycn-Sthxvo-Lykhfr Hx Patient Social History Alcohol Use: Denies Use Recreational Drug Use: No Smoking Status: Former Smoker Type Used: Cigarettes Former Smoker, Quit: January 16, 2012 2nd Hand Smoke Exposure: No Recent Foreign Travel: No Contact w/Someone Who Travel: No Recent Hopitalizations: No Immunizations Up To Date Tetanus Booster (TDap): Less than 5yrs Date of Pneumonia Vaccine: Dec 14, 2013 Date of Influenza Vaccine: May 16, 2015 Seasonal Allergies Seasonal Allergies: Yes Past Medical History Surgeries: Yes (foot sx, knee scope, hemorrage that required sx, ) Tonsillectomy Respiratory: No Cardiac: No Neurological: No Reproductive Disorders: No Female Reproductive Disorders: Denies Sexually Transmitted Disease: No Kidney Infection, Bladder Infection, UTI-Chronic Gastrointestinal: No Musculoskeletal: Yes Chronic Back Pain Endocrine: No Cancer: No Psychosocial: No Integumentary: No Blood Disorders: No Family Medical History Heart Disease Physical Exam Vital Signs Vital Signs - First Documented 11/11/18 10:34 Temp 96.1 Pulse 77 Resp 18 B/P (MAP) 145/94 (111) Pulse Ox 97 O2 Delivery Room Air Capillary Refill : Height, Weight, BMI Height: 5'7.00" Weight: 180lbs. 0oz. 81.439786zc; 32.3 BMI Method:Stated General Appearance: WD/WN, Anxious, Mild Distress HEENT: PERRL/EOMI, Pharynx Normal Neck: Full Range of Motion, Normal Inspection Respiratory: Chest Non Tender, Lungs Clear, Normal Breath Sounds, No Accessory Muscle Use, No Respiratory Distress Cardiovascular: Regular Rate, Rhythm, Normal Peripheral Pulses Gastrointestinal: Normal Bowel Sounds, Non Tender, Soft Extremity: Normal Capillary Refill, Normal Inspection, Normal Range of Motion, Non Tender, No Calf Tenderness, No Pedal Edema Neurologic/Psychiatric: Alert, Oriented x3 Skin: Normal Color, Warm/Dry Progress/Results/Core Measures Results/Orders Lab Results Laboratory Tests Test 11/11/18 10:33 Range/Units White Blood Count 10.9 4.3-11.0 10^3/uL Red Blood Count 4.66 4.35-5.85 10^6/uL Hemoglobin 14.9 11.5-16.0 G/DL Hematocrit 43 35-52 % Mean Corpuscular Volume 93 80-99 FL Mean Corpuscular Hemoglobin 32 25-34 PG Mean Corpuscular Hemoglobin Concent 35 32-36 G/DL Red Cell Distribution Width 12.7 10.0-14.5 % Platelet Count 329 130-400 10^3/uL Mean Platelet Volume 9.7 7.4-10.4 FL Neutrophils (%) (Auto) 69 42-75 % Lymphocytes (%) (Auto) 21 12-44 % Monocytes (%) (Auto) 5 0-12 % Eosinophils (%) (Auto) 5 0-10 % Basophils (%) (Auto) 1 0-10 % Neutrophils # (Auto) 7.5 1.8-7.8 X 10^3 Lymphocytes # (Auto) 2.2 1.0-4.0 X 10^3 Monocytes # (Auto) 0.6 0.0-1.0 X 10^3 Eosinophils # (Auto) 0.5 H 0.0-0.3 10^3/uL Basophils # (Auto) 0.1 0.0-0.1 10^3/uL Prothrombin Time 13.5 12.2-14.7 SEC INR Comment 1.0 0.8-1.4 Activated Partial Thromboplast Time 35 24-35 SEC Sodium Level 140 135-145 MMOL/L Potassium Level 3.6 3.6-5.0 MMOL/L Chloride Level 106 98-107 MMOL/L Carbon Dioxide Level 26 21-32 MMOL/L Anion Gap 8 5-14 MMOL/L Blood Urea Nitrogen 13 7-18 MG/DL Creatinine 0.85 0.60-1.30 MG/DL Estimat Glomerular Filtration Rate > 60 BUN/Creatinine Ratio 15 Glucose Level 88 70-105 MG/DL Calcium Level 9.3 8.5-10.1 MG/DL Corrected Calcium 9.1 8.5-10.1 MG/DL Magnesium Level 1.9 1.8-2.4 MG/DL Total Bilirubin 0.5 0.1-1.0 MG/DL Aspartate Amino Transf (AST/SGOT) 18 5-34 U/L Alanine Aminotransferase (ALT/SGPT) 12 0-55 U/L Alkaline Phosphatase 93 40-136 U/L Myoglobin 53.9 10.0-92.0 NG/ML Troponin I < 0.028 <0.028 NG/ML B-Type Natriuretic Peptide 33.1 <100.0 PG/ML Total Protein 7.7 6.4-8.2 GM/DL Albumin 4.3 3.2-4.5 GM/DL Triglycerides Level 100 <150 MG/DL Lipase 245 H 8-78 U/L Serum Alcohol < 10 <10 MG/DL My Orders Orders - CASTILLO HUNTER Aspirin Chewable Tablet (Baby Aspirin Ch (11/11/18 10:30) Cbc With Automated Diff (11/11/18 10:33) Magnesium (11/11/18 10:33) Ekg Tracing (11/11/18 10:33) Cardiac Profile 1 (11/11/18 10:33) Comprehensive Metabolic Panel (11/11/18 10:33) Myoglobin Serum (11/11/18 10:33) Protime With Inr (11/11/18 10:33) Partial Thromboplastin Time (11/11/18 10:33) O2 (11/11/18 10:33) Monitor-Rhythm Ecg Trace Only (11/11/18 10:33) Lipid Panel (11/12/18 06:00) Saline Lock/Iv-Start (11/11/18 10:33) Lipase (11/11/18 10:33) BNP (11/11/18 10:33) Aspirin Chewable Tablet (Baby Aspirin Ch (11/11/18 10:45) Nitroglycerin 0.4 Mg Btl 25's (Nitrostat (11/11/18 10:45) Chest Pa/Lat (2 View) (11/11/18 10:43) Ct Abdomen/Pelvis W (11/11/18 11:44) Saline Lock/Iv-Start (11/11/18 11:45) Ns Iv 1000 Ml (Sodium Chloride 0.9%) (11/11/18 11:45) Triglycerides (11/11/18 12:16) Alcohol (11/11/18 12:21) Pantoprazole Injection (Protonix Injecti (11/11/18 12:30) Iohexol Injection (Omnipaque 350 Mg/Ml 1 (11/11/18 13:15) Received Contrast (Hold Metformin- Contr (11/11/18 13:15) Medications Given in ED Current Medications Medications Dose Ordered Sig/Ly Route Start Time Stop Time Status Last Admin Dose Admin Aspirin 325 mg ONCE ONCE PO 11/11/18 10:45 11/11/18 10:46 DC 11/11/18 10:30 325 MG Iohexol 100 ml ONCE ONCE IV 11/11/18 13:15 11/11/18 13:16 DC 11/11/18 13:10 100 ML Nitroglycerin 0.4 mg UD PRN SL 11/11/18 10:45 11/11/18 10:45 0.4 MG Pantoprazole 40 mg ONCE ONCE IV 11/11/18 12:30 11/11/18 12:31 DC 11/11/18 13:29 40 MG Vital Signs/I&O 11/11/18 11/11/18 10:34 10:34 Temp 96.1 Pulse 77 Resp 18 B/P (MAP) 145/94 (111) Pulse Ox 97 O2 Delivery Room Air Progress Progress Note #1: Time: 10:39 Progress Note Pain presenting in a dermatomal fashion. No history of trauma to suggest a radiculopathy acutely. It's nontender to palpation. We'll give her some aspirin and try some nitroglycerin that we may try some GI cocktail. We'll check a lipase and other cardiac labs. Chest x-ray two-view. Echocardiogram [address] Jaramillo demonstrates normal global left ventricular systolic function with an EF of 60%. Trivial to mild mitral and tricuspid regurgitation and pulmonary systolic pressure of 25-30 mmHg. ED ACS 2 points. Low risk by the EDACS Score. If the patient also has: (1) EKG without new ischemic changes and (2) negative initial and 2-hour troponins, then this patient is safe for discharge to early outpatient follow-up investigation (or proceed to earlier inpatient testing). If EKG with ischemic changes or positive troponin, they are not low risk and require normal risk stratification. Progress Note #2: Time: 12:19 Progress Note Patient's pain is significantly decreased after nitroglycerin, rest. We have ordered some fluids because her lipase was elevated 3 times abdomen normal. She' s not anything for pain or nausea at the moment. We'll get a CT of her abdomen. We will add a triglyceride level. She has no history of abdominal surgeries, gallstones, pancreatitis, hypertriglyceridemia, alcohol use or diabetes. Progress Note #3: Time: 14:09 Progress Note The patient has received her fluids and has not required any pain medicine but her pain has completely resolved. Suspect possibly there was a small's passing or some other reason for her transient, idiopathic pancreatitis. CT did not demonstrate any ductal dilatation, tumor or other immediate cause for further workup today. We'll have her follow-up with primary care to discuss further outpatient workup needed by GI or from her primary care perspective thinking about what could have set off her transient pancreatitis. We have offered her an observation stay but she's not having any symptoms now we've given her good return precautions and she would prefer to go home. Initial ECG Impression Date: Nov 11, 2018 Initial ECG Impression Time: 10:27 Initial ECG Rate: 70 Initial ECG Rhythm: Normal Sinus Initial ECG Intervals: Normal Initial ECG Impression: Normal Initial ECG Comparisson: No Previous ECG Available Diagnostic Imaging Diagonstic Imaging: Xray Plain Films/CT/US/NM/MRI: chest (2v) Comments [email or web address] [place] NAME: [facility] REC#: [id number] PT STATUS: REG ER : 1975 PHYSICIAN: CASTILLO HUNTER MD ADMIT DATE: 11/11/18/ER Draft Date of Exam:11/11/18 CHEST PA/LAT (2 VIEW) INDICATION: Back pain PA and lateral chest Heart size and pulmonary vascularity are normal. Lungs are clear. There are no effusions or pneumothoraces. IMPRESSION: Negative chest. Dictated on workstation # [id number] Dict: 11/11/18 1058 Trans: 11/11/18 1059 [facility] [id number] Interpreted by: ALLA ZHANG MD Electronically signed by: Reviewed: Reviewed by Me Diagonstic Imaging: CT (with IV contrast) Plain Films/CT/US/NM/MRI: abdomen, pelvis Comments [email or web address] [place] NAME: [facility] REC#: [id number] PT STATUS: REG ER : 1975 PHYSICIAN: CASTILLO HUNTER MD ADMIT DATE: 11/11/18/ER Draft Date of Exam:11/11/18 CT ABDOMEN/PELVIS W PROCEDURE: CT abdomen and pelvis with contrast. TECHNIQUE: Multiple contiguous axial images were obtained through the abdomen and pelvis after administration of intravenous contrast. Auto Exposure Controls were utilized during the CT exam to meet ALARA standards for radiation dose reduction. INDICATION: Abdominal pain. COMPARISON: 02/18/2016. FINDINGS: The lung bases are clear. The heart is normal in size. There is no pericardial effusion. No focal hepatic lesions are seen. The gallbladder is decompressed. The spleen appears normal. The pancreas is normal. The adrenal glands appear normal. There is no hydronephrosis. There appear to be multiple cortical scars in the right kidney which appears similar to 2016. There is no hydroureter. No filling defects are seen in the urinary bladder. The bowel loops are nondistended without evidence of obstruction. The appendix appears normal. There is a 2 cm dominant ovarian follicle at the left ovary. No free fluid or free air is seen. No acute osseous abnormality is seen. IMPRESSION: 1. Multiple cortical scars of the right kidney appear similar to 2006. There is no hydronephrosis or findings to suggest acute pyelonephritis. Dictated on workstation # [id number] Dict: 11/11/18 1321 Trans: 11/11/18 1332 [facility] [id number] Interpreted by: WILLIAM JOE MD Electronically signed by: Reviewed: Reviewed by Me Departure Impression Primary Impression: Pancreatitis, acute Qualified Codes: K85.00 - Idiopathic acute pancreatitis without necrosis or infection Disposition: HOME, SELF-CARE Condition: Stable Departure-Patient Inst. Decision time for Depature: 14:09 Referrals: YANIQUE LAUREANO DO (PCP/Family) Primary Care Physician IMANI JARAMILLO MD FACP FAC CCDS Patient Instructions: Pancreatitis (DC) Add. Discharge Instructions: Drink plenty of fluids. Avoid particular greasy meals for the next few days. Start taking the omeprazole daily for the next [address] Laureano's office and request an appointment to follow up for your transient pancreatitis. Call Dr. Jaramillo and request a follow-up appointment for your chest pain in the next few days. If you begin to have severe, intractable pain, nausea or vomiting or other worrisome symptoms then you should return to the nearest ER for further evaluation. All discharge instructions reviewed with patient and/or family. Voiced understanding. Scripts Omeprazole (Omeprazole) 40 Mg Capsule. 40 MG PO DAILY for 14 Days, #14 CAP 0 Refills Prov: CASTILLO HUNTER 11/11/18 Work/School Note: Work Release Form Date Seen in the Emergency Department: Nov 11, 2018 Return to Work: Nov 12, 2018 Restrictions: No Restrictions Copy Copies To 1: YANIQUE LAUREANO TITUS J Nov 11, 2018 10:42
[2018-11-11] MEDS ORDERED: NITROGLYCERIN 0.4 MG SL TABS BTL 25'S SL PRN (10:45)
[2018-11-11] MEDS ORDERED: ASPIRIN 81 MG CHEW (CHILDREN'S ASA) PO ONE (10:45)
[2018-11-11 10:53] LABS: PROTHROMBIN TIME PATIENT 13.5 SEC (12.2-14.7)
--- NOTE | 2018-11-11 11:00 | Diagnostic Imaging Report ---
INDICATION: Back pain PA and lateral chest Heart size and pulmonary vascularity are normal. Lungs are clear. There are no effusions or pneumothoraces. IMPRESSION: Negative chest. Dictated by: Dictated on workstation # [id number]
[2018-11-11 11:03] LABS: ALANINE AMINOTRANSFERASE 12 U/L (0-55); ALBUMIN 4.3 GM/DL (3.2-4.5); ALKALINE PHOSPHATASE 93 U/L (40-136); BILIRUBIN,TOTAL 0.5 MG/DL (0.1-1.0); BUN/CREATININE RATIO 15; CALCIUM 9.3 MG/DL (8.5-10.1); CARBON DIOXIDE 26 MMOL/L (21-32); CHLORIDE 106 MMOL/L (98-107); CREATININE SERUM 0.85 MG/DL (0.60-1.30); GFR ESTIMATED > 60; GLUCOSE 88 MG/DL (70-105); LIPASE 245 U/L (8-78); MAGNESIUM 1.9 MG/DL (1.8-2.4); POTASSIUM 3.6 MMOL/L (3.6-5.0); SODIUM 140 MMOL/L (135-145); TOTAL PROTEIN 7.7 GM/DL (6.4-8.2)
[2018-11-11 11:10] LABS: MYOGLOBIN SERUM 53.9 NG/ML (10.0-92.0)
[2018-11-11] MEDS ORDERED: NS IV 1000 ML 1,000 ML IV SCH (11:45)
[2018-11-11] MEDS ORDERED: PANTOPRAZOLE 40 MG (PROTONIX) VIAL IV ONE (12:30)
[2018-11-11 12:32] LABS: TRIGLYCERIDES 100 MG/DL (<150)
[2018-11-11] MEDS ORDERED: HOLD METFORMIN - RECEIVED CONTRAST 20 ML VIAL IV SCH (13:15)
[2018-11-11] MEDS ORDERED: IOHEXOL 350 MG/ML 100 ML (OMNIPAQUE 350) VIAL IV ONE (13:15)
--- NOTE | 2018-11-11 13:33 | Diagnostic Imaging Report ---
PROCEDURE: CT abdomen and pelvis with contrast. TECHNIQUE: Multiple contiguous axial images were obtained through the abdomen and pelvis after administration of intravenous contrast. Auto Exposure Controls were utilized during the CT exam to meet ALARA standards for radiation dose reduction. INDICATION: Abdominal pain. COMPARISON: 02/18/2016. FINDINGS: The lung bases are clear. The heart is normal in size. There is no pericardial effusion. No focal hepatic lesions are seen. The gallbladder is decompressed. The spleen appears normal. The pancreas is normal. The adrenal glands appear normal. There is no hydronephrosis. There appear to be multiple cortical scars in the right kidney which appears similar to 2016. There is no hydroureter. No filling defects are seen in the urinary bladder. The bowel loops are nondistended without evidence of obstruction. The appendix appears normal. There is a 2 cm dominant ovarian follicle at the left ovary. No free fluid or free air is seen. No acute osseous abnormality is seen. IMPRESSION: 1. Multiple cortical scars of the right kidney appear similar to 2006. There is no hydronephrosis or findings to suggest acute pyelonephritis. Dictated by: Dictated on workstation # [id number]
[2018-11-11] MEDS ORDERED: OMEP40CA36 PO (14:12)
[2018-11-11 14:28] VITALS: BP 130/96
== END 2018-11-11 14:28 | disposition home or self-care (01) ==
LOC: EDUNIT# 10:24 → ER 10:25
DX: K85.90 Acute pancreatitis without necrosis or infection, unspecified (principal); K21.9 Gastro-esophageal reflux disease without esophagitis; F41.9 Anxiety disorder, unspecified; Z98.890 Other specified postprocedural states; Z87.891 Personal history of nicotine dependence; Z90.89 Acquired absence of other organs; Z87.448 Personal history of other diseases of urinary system; Z87.440 Personal history of urinary (tract) infections
CPT/HCPCS: 36415; 71046; 74177; 80053; 80320; 83690; 83735; 83874; 83880; 84478; 84484; 85025; 85610; 85730; 93005; 93041

== ENCOUNTER → 2020-10-25 | Outpatient (CLI) | payer BC ==
[~2020-10-25] MED LIST changes: +NABU-88 PO; -NABU500T PO; +OMEP40CA27 PO
--- NOTE | 2020-10-25 20:18 | Diagnostic Imaging Report ---
INDICATION: Routine screening COMPARISON is made with prior mammograms 09/27/2016 and 07/28/2015. 2-D and 3-D bilateral screening mammography was performed with CAD. Scattered fibroglandular densities are identified bilaterally. The parenchymal pattern is stable. No mass or malignant appearing microcalcifications are seen. Axillae are unremarkable. IMPRESSION: BI-RADS Category 1. No mammographic features suspicious for malignancy are identified. ACR BI-RADS Category 1: Negative. Result letter will be mailed to the patient. Note: At least 10% of breast cancer is not imaged by mammography. Dictated by: Dictated on workstation # [id number]
== END ==
LOC: RAD 14:05
PROVIDERS: ATTEND Nurse Practitioner Family
DX: Z12.31 Encounter for screening mammogram for malignant neoplasm of breast (principal)
CPT/HCPCS: 77063; 77067